=== PATIENT | male | born 1955 | race Caucasian/White ===

== ENCOUNTER 2016-11-09 23:21 | Emergency (ER) | payer BC | END 2016-11-10 01:49 | disposition home or self-care (01) | LOC: CED 23:21 | DX: S01.03XA Puncture wound without foreign body of scalp, initial encounter (principal); Z23 Encounter for immunization; W26.8XXA Contact with other sharp object(s), not elsewhere classified, initial encounter; Y92.9 Unspecified place or not applicable | CPT/HCPCS: 90471; 90715; 99283; J0690 ==